=== PATIENT | male | born 1970 | race Caucasian/White ===

== ENCOUNTER 2019-04-20 06:39 | Day surgery (SDC) | payer OTHER ==
[2019-04-15 16:16] VITALS: BMI 25.8
[~2019-04-20 06:39] MED LIST: LACTATED RINGERS 1,000 ML IV SCH
[2019-04-20 07:14] VITALS: RESP 16; TEMP 96.7
[2019-04-20] MEDS ORDERED: PROPOFOL 10 MG/ML 20 ML VIAL IV ONE (07:40)
--- NOTE | 2019-04-20 07:44 | P.GSHP ---
History of Present Illness H&P Date: 04/20/19 Chief Complaint: GI bleed This is a 49-year-old male presents today for colonoscopy. Patient's complaints of hemorrhoids. The patient states he has a previous history of heavy drinking. He has been sober for 36 months. He states he drank a fifth of vodka per day. Past Medical History Past Medical History: Osteoarthritis (OA) Additional Past Medical History / Comment(s): HX OF PANCREATIS, PSORIASIS, STAT ES SWELLING IN RECTAL AREA- STATES HE HAS BEEN ON SOFT FOODS FOR THE LAST MONTH. History of Any Multi-Drug Resistant Organisms: None Reported Past Surgical History: No Surgical Hx Reported Additional Past Surgical History / Comment(s): STATES CORTISONE INJECTION IN HIS HIP UNDER ANESTHESIA. Past Anesthesia/Blood Transfusion Reactions: No Reported Reaction Past Psychological History: No Psychological Hx Reported Smoking Status: Heavy tobacco smoker Past Alcohol Use History: None Reported Additional Past Alcohol Use History / Comment(s): STATES HE QUIT ALCOHOL APPROX 3 YRS AGO AFTER PANCREATITIS. SMOKES 1 PPD (DOWN FROM 2 1/2 PPD), SMOKING FOR 35 YEARS. Past Drug Use History: Marijuana Additional Drug Use History / Comment(s): OCCASIONAL MARIJUANA USE - Past Family History Mother Additional Family Medical History / Comment(s): AT AGE 47 FROM ALCOHOL Father Additional Family Medical History / Comment(s): AGE 43 FROM ALCOHOL Medications and Allergies Home Medications Medication Instructions Recorded Confirmed Type Cyclobenzaprine [Flexeril] 1 tablet PO BID 04/20/19 04/20/19 History Allergies Allergy/AdvReac Type Severity Reaction Status Date / Time No Known Allergies Allergy Verified 04/15/19 15:51 Surgical - Exam Vital Signs Temp Pulse Resp BP Pulse Ox 96.7 F L 67 16 118/71 99 04/20/19 07:12 04/20/19 07:12 04/20/19 07:12 04/20/19 07:12 04/20/19 07:12 - General well developed, well nourished, no distress - Eyes PERRL - ENT normal pinna - Neck no masses - Respiratory normal expansion - Cardiovascular Rhythm: regular - Abdomen Abdomen: soft, non tender Assessment and Plan Assessment: History of GI bleed We'll perform colonoscopy.
[2019-04-20 08:20] VITALS: BP 120/81; PULSE 56
--- NOTE | 2019-04-20 09:28 | P.OP ---
Date of Procedure: 04/20/19 Preoperative Diagnosis: GI bleed Postoperative Diagnosis: Internal hemorrhoids Diverticulosis Procedure(s) Performed: Colonoscopy Anesthesia: MAC Surgeon: Joao Dasilva Pathology: none sent Condition: stable Disposition: PACU Description of Procedure: The patient's placed on the endoscopy table in the lateral position. He received IV sedation. Digital rectal exam was performed which revealed a few internal hemorrhoids. The flexible colonoscope was then placed patient anus and passed throughout the entire colon. The ileocecal valve was visualized. The cecum, ascending and transverse colon. No. The descending colon appeared normal. In the sigmoid colon there was a few scattered diverticula. The scope was brought back the rectum this appeared normal and was withdrawn. Anus and there were a few internal hemorrhoids. There is no evidence of any active GI bleed. It is presumed that his bleeding is due to internal hemorrhoids.
== END 2019-04-20 08:42 | disposition home or self-care (01) ==
LOC: ORWHC2ENDO 06:39 → MERGE 07:45 → ORWHC2ENDO 08:42
PROVIDERS: ATTEND Surgery
DX: K64.8 Other hemorrhoids (principal); K57.30 Diverticulosis of large intestine without perforation or abscess without bleeding; F17.210 Nicotine dependence, cigarettes, uncomplicated; L40.9 Psoriasis, unspecified; M19.90 Unspecified osteoarthritis, unspecified site
CPT/HCPCS: 45378; J2704

== ENCOUNTER → 2020-10-30 | Outpatient (CLI) | payer OTHER ==
[~2020-10-30] MED LIST changes: -LACTATED RINGERS 1,000 ML IV SCH; +REGADENOSON 0.4 MG/5 ML SYRINGE IV ONE
--- NOTE | 2020-10-30 10:48 | P.STRESS ---
- Stress Test Note Stress Test Results/Findings: Exam Performed: NM stress lexiscan cardiolite Exam Date: 10/30/20 Reason for Exam: Chest Pain Height: 5 ft 6 in Weight: 77.111 kg Protocol: Lexiscan Stage: na Duration of Exercise: na Resting Heart Rate: 55 Resting Blood Pressure: 119/72 Maximum Achieved Heart Rate: 97 Maximum Achieved Blood Pressure: 131/71 85% PMHR: 143 100% PMHR: 168 METS: na Technologist Comment: Stress Test Results/Findings: This is a 50-year-old gentleman with history of smoking being evaluated for symptoms of chest pain, shortness of breath and numbness in both arms. New Stress data: Baseline EKG showed sinus rhythm with normal [place] interval, QRS duration. Blood pressure at rest is 119/72 with pulse rate of 55. A standard dose of Lexiscan was infused. EKGs taken during and after the infusion did not reveal any significant changes from the baseline. Patient did not experience any symptoms. Final impression: #1. Negative Lexiscan stress test #2. Report on the nuclear images to be given by the radiologist.
--- NOTE | 2020-10-30 11:30 | NM ---
EXAMINATION TYPE: NM stress lexiscan cardiolite DATE OF EXAM: 10/30/2020 COMPARISON: NONE HISTORY: R07.9 Chest pain TECHNIQUE: After the intravenous administration of 10.2 mCi Tc 99m Sestamibi - Cardiolite resting SP ECT images acquired 45 minutes post injection. The patient received 0.4mg Lexiscan, 26 mCi Tc 99m Sestamibi - Stress images obtained 30 minutes post injection FINDINGS: Review of stress and rest SPECT images demonstrates decreased perfusion involving the inferior wall o n both rest and stress images likely related to attenuation artifact versus remote insult. Decreased perfusion on stress imaging involving the cardiac apex. Stress-induced ischemia is not excluded. Lizzy elate clinically. Gated analysis shows normal wall motion with an estimated left ventricular ejection fraction of 52 %. IMPRESSION: Decreased perfusion on stress imaging involving the cardiac apex. Stress-induced ischemia is not excl uded. Correlate clinically.
--- NOTE | 2020-10-30 14:20 | EST ---
Stress Test Results/Findings: Exam Performed: NM stress lexiscan cardiolite Exam Date: 10/30/20 Reason for Exam: Chest Pain Height: 5 ft 6 in Weight: 77.111 kg Protocol: Lexiscan Stage: na Duration of Exercise: na Resting Heart Rate: 55 Resting Blood Pressure: 119/72 Maximum Achieved Heart Rate: 97 Maximum Achieved Blood Pressure: 131/71 85% PMHR: 143 100% PMHR: 168 METS: na Technologist Comment: Stress Test Results/Findings: This is a 50-year-old gentleman with history of smoking being evaluated for symptoms of chest pain, shortness of breath and numbness in both arms. New Stress data: Baseline EKG showed sinus rhythm with normal CT interval, QRS duration. Blood pressure at rest is 119/72 with pulse rate of 55. A standard dose of Lexiscan was infused. EKGs taken during and after the infusion did not reveal any significant changes from the baseline. Patient did not experience any symptoms. Final impression: #1. Negative Lexiscan stress test #2. Report on the nuclear images to be given by the radiologist. YESY
== END | disposition home or self-care (01) ==
LOC: RADNMMAIN 07:39
PROVIDERS: ATTEND Family Medicine
DX: R94.39 Abnormal result of other cardiovascular function study (principal); R07.9 Chest pain, unspecified
CPT/HCPCS: 93017; 78452; A9500; J2785

== ENCOUNTER 2020-12-12 08:11 | Day surgery (SDC) | payer OTHER ==
[2020-12-07 14:38] VITALS: BMI 27.4
[~2020-12-12 08:11] MED LIST changes: +ALPRAZolam 0.25 MG TAB PO PRN; +ALPRAZolam 0.5 MG TAB PO PRN; +ASPIRIN 325 MG TAB PO STA; +ATORVASTATIN 80 MG TAB PO STA; +HEPARIN SODIUM,PORCINE 10,000 UNIT in SODIUM CHLORIDE 0.9% 1,000 ML IRRIGATION PRN; +HEPARIN SODIUM,PORCINE 2,500 UNIT in SODIUM CHLORIDE 0.9% 250 ML IRRIGATION PRN; +NITROGLYCERIN SL TABS 0.4 MG TAB SUBLINGUAL PRN; -REGADENOSON 0.4 MG/5 ML SYRINGE IV ONE; +SODIUM CHLORIDE 0.9% 1,000 ML in EMPTY BAG 1 BAG IV ONE
[2020-12-12] MEDS ORDERED: ASPIRIN 81 MG ONE (08:25)
[2020-12-12 08:38] VITALS: RESP 18; TEMP 96
[2020-12-12 09:12] LABS: Basophils % (A) 1 %; Eosinophils # (A) 0.2 k/uL (0-0.7); Eosinophils % (A) 3 %; HCT 45.4 % (39.0-53.0); HGB 14.8 gm/dL (13.0-17.5); Lymphocytes # (A) 1.1 k/uL (1.0-4.8); Lymphocytes % (A) 16 %; MCH 31.8 pg (25.0-35.0); MCHC 32.6 g/dL (31.0-37.0); MCV 97.4 fL (80.0-100.0); Mean Platelet Volume 7.8; Monocytes # (A) 0.3 k/uL (0-1.0); Monocytes % (A) 5 %; Neutrophils # (A) 4.7 k/uL (1.3-7.7); Neutrophils % (A) 74 %; Platelet Count 192 k/uL (150-450); RBC 4.66 m/uL (4.30-5.90); RDW 13.8 % (11.5-15.5); WBC 6.4 k/uL (3.8-10.6)
[2020-12-12 09:20] LABS: African American GFR (CKD) >90 (>60 ml/min/1.73 sqM); Anion Gap 4 mmol/L; Blood Urea Nitrogen 19 mg/dL (9-20); Calcium 9.2 mg/dL (8.4-10.2); Carbon Dioxide 30 mmol/L (22-30); Chloride 103 mmol/L (98-107); Glucose 113 mg/dL (74-99); Non-African American GFR(CKD) >90 (>60 ml/min/1.73 sqM); Potassium 5.2 mmol/L (3.5-5.1); Sodium 137 mmol/L (137-145)
[2020-12-12] MEDS ORDERED: LIDOCAINE 1% INJ 10MG/ML (20 ML MDV) ONE (10:07)
[2020-12-12] MEDS ORDERED: VERAPAMIL 2.5 MG/ML 2 ML AMP ONE (10:07)
[2020-12-12] MEDS ORDERED: fentaNYL (PF) 50 MCG/ML 2 ML AMP ONE (10:20)
[2020-12-12] MEDS ORDERED: fentaNYL (PF) 50 MCG/ML 2 ML AMP IVP ONE (10:36)
[2020-12-12] MEDS ORDERED: MIDAZOLAM 2 MG/2 ML VIAL IVP ONE (10:37)
[2020-12-12] MEDS ORDERED: LIDOCAINE 1% INJ 10MG/ML (20 ML MDV) SQ ONE (10:37)
[2020-12-12] MEDS ORDERED: HEPARIN SODIUM 1,000 UN/ML (10ML VL) ONE (10:38)
[2020-12-12] MEDS ORDERED: VERAPAMIL SYRINGE (5 MG/10 ML) INTRAARTER ONE (10:39)
[2020-12-12] MEDS ORDERED: HEPARIN SODIUM 1,000 UN/ML (10ML VL) IV ONE (10:41)
[2020-12-12] MEDS ORDERED: IOPAMIDOL-370 125ML BTL INJ ONE (10:48)
[2020-12-12] MEDS ORDERED: RX INFO: IV CONTRAST WAS GIVEN 1 EACH MISC MISCELLANE PRN (10:56)
--- NOTE | 2020-12-12 10:56 | P.CARDCATH ---
Description of Procedure: PROCEDURES PERFORMED: Left heart catheterization, bilateral coronary angiography INDICATION: Abnormal stress test, chest pain HISTORY: Patient is a pleasant 50-year-old male with history of tobacco abuse, hypertension who presents for chest pain over the last 1 year as well as some shortness breath with exertion. He has been attempting to cut down on his cigarettes. He did have a nuclear stress test which showed concern of apical reversible ischemia. CONSENT:I have discussed the risks, benefits and alternative therapies for the above-mentioned procedure and for both sedation/analgesia as well as necessary blood product administration, if indicated, as they pertain to this patient. The patient has indicated understanding and acceptance of the risks and procedures discussed. PROCEDURE: After the risks, benefits and alternatives of the above mentioned procedure explained in detail with the patient, informed consent was obtained. Patient was taken to the catheterization lab and prepped and draped in usual fashion. 1% lidocaine was used to anesthetize the right radial artery. A 6- Kinyarwanda sheath was placed in the right radial artery using modified Seldinger technique. Left coronary angiography was performed with a 5-Kinyarwanda JL 3.5 catheter and right coronary angiography was performed with a 5-Kinyarwanda JR5 catheter in various views. The 5Fr FR5 catheter was inserted into the left ventricle and pressure measurements were obtained. The right radial sheath was removed and a TR band was placed with hemostasis achieved. The patient tolerated the procedure well. Patient was transported back to the post catheterization holding area in stable condition. Conscious Sedation: Patient was monitored under the direct supervision of vision of myself for conscious sedation using Versed and fentanyl for a total duration of 28 minutes HEMODYNAMICS: Aorta: 102/67 LV: 91/2, LVEDP 6mmHg SELECTIVE CORONARY ARTERIOGRAPHY: LEFT MAIN: The left main is a large caliber vessel which bifurcates into the LAD and circumflex. There is no significant stenosis. LEFT ANTERIOR DESCENDING CORONARY ARTERY: LAD is a large caliber vessel which wraps around to the apex. There is no significant stenosis. LEFT CIRCUMFLEX CORONARY ARTERY: Left circumflex is a moderate caliber vessel without significant stenosis. RIGHT CORONARY ARTERY: The right coronary artery is a large caliber vessel which gives off a PDA and PLV branch and is the dominant vessel. There is no significant stenosis. FINAL IMPRESSION: 1. Normal coronary arteries as described above. 2. Normal left-sided pressures PLAN: 1. Aggressive risk factor modification per most recent ACC/AHA guidelines. Workup other causes of chest pain. 2. Follow-up in the office in 1-2 weeks.
[2020-12-12 15:17] VITALS: PULSE 62
[2020-12-12 15:28] VITALS: BP 128/66
== END 2020-12-12 15:22 | disposition home or self-care (01) ==
LOC: CATHCVL 08:11
PROVIDERS: ATTEND Internal Medicine
DX: R94.39 Abnormal result of other cardiovascular function study (principal); R07.89 Other chest pain; R07.2 Precordial pain; R20.0 Anesthesia of skin; R06.09 Other forms of dyspnea; R06.02 Shortness of breath; M19.90 Unspecified osteoarthritis, unspecified site; I65.29 Occlusion and stenosis of unspecified carotid artery; I10 Essential (primary) hypertension; F17.210 Nicotine dependence, cigarettes, uncomplicated; Z79.899 Other long term (current) drug therapy; Z82.49 Family history of ischemic heart disease and other diseases of the circulatory system; Z81.2 Family history of tobacco abuse and dependence
CPT/HCPCS: 93458; 80048; 85025; C1769; C1894; J2250; J2001; J3010; J1644; Q9967